=== PATIENT | male | born 1990 | race Caucasian/White ===

== ENCOUNTER 2017-11-04 20:44 | Emergency (ER) | payer MEDICAID, OTHER | END 2017-11-04 23:14 | disposition home or self-care (01) | LOC: E/R 20:44 | DX: T40.1X1A Poisoning by heroin, accidental (unintentional), initial encounter (principal); R00.0 Tachycardia, unspecified | CPT/HCPCS: 36415; 93005; 99283-25 ==

== ENCOUNTER 2018-02-21 10:18 | Emergency (ER) | payer MEDICAID ==
[2018-02-21] MEDS ORDERED: LIDOCAINE 1% (MDV) 10 ML INJ INJ (10:30)
[2018-02-21] MEDS: LIDOCAINE 1% (MPF) 5 ML VIAL INJ (11:26)
== END 2018-02-21 11:40 | disposition home or self-care (01) ==
LOC: FTE 10:18
DX: L02.413 Cutaneous abscess of right upper limb (principal)
CPT/HCPCS: 10060; 99283-25

== ENCOUNTER 2018-04-24 04:06 | Emergency (ER) | payer MEDICAID ==
[2018-04-24] MEDS: LORAZEPAM 2 MG INJ IM (07:00)
== END 2018-04-24 07:35 | disposition home or self-care (01) ==
LOC: E/R 04:06
DX: F11.23 Opioid dependence with withdrawal (principal); F17.210 Nicotine dependence, cigarettes, uncomplicated
CPT/HCPCS: 96372; 99284-25

== ENCOUNTER 2018-05-03 20:59 | Emergency (ER) | payer MEDICAID ==
[2018-05-03] MEDS: LORAZEPAM 1 MG TAB PO (21:53)
== END 2018-05-03 21:55 | disposition home or self-care (01) ==
LOC: FTE 20:59
DX: F11.10 Opioid abuse, uncomplicated (principal); F17.210 Nicotine dependence, cigarettes, uncomplicated
CPT/HCPCS: 99283; Z7502